=== PATIENT | female | born 1965 | race Caucasian/White ===

== ENCOUNTER 2016-09-30 05:58 | Day surgery (SDC) | payer BC ==
--- NOTE | ~2016-09-30 | EGD ---
EGD REPORT [facility] [address] [place] [address] NAME: YNES FLORES : [birth year] STATUS : REG [facility]#: [id number] AGE: 51 ADM/REG DATE : 09/30/16 MR#: [id number] REPORT SERV DATE: 09/30/16 DICTATED BY: MELISSA GRAYSON DATE: 09/30/16 REPORT STATUS : Draft [facility] DATE: 09/30/16 Endoscopy Center Patient Name: Ynes Flores Date of : 1965 Attending MD: MELISSA GRAYSON, Procedure Date No Time: 09/30/2016 Procedure: Upper GI endoscopy Indications: Epigastric abdominal pain, Iron deficiency anemia, Esophageal reflux Referring MD: MARY ANNE VIDAL Medicines: Monitored Anesthesia Care Complications: No immediate complications. Estimated blood loss: None. Procedure: Pre-Anesthesia Assessment: - ASA Grade Assessment: III - A patient with severe systemic disease. After obtaining informed consent, the endoscope was passed under direct vision. Throughout the procedure, the patient's blood pressure, pulse, and oxygen saturations were monitored continuously. The GIF [id number] was introduced through the mouth, and advanced to the second part of duodenum. The upper GI endoscopy was accomplished without difficulty. The patient tolerated the procedure well. Findings: One cratered esophageal ulcer with no bleeding and no stigmata of recent bleeding was found at the gastroesophageal junction. The lesion was 10 mm in largest dimension. LA Grade C (one or more mucosal breaks continuous between tops of 2 or more mucosal folds, less than 75% circumference) esophagitis with no bleeding was found in the lower third of the esophagus. Biopsies were taken with a cold forceps for histology. Verification of patient identification for the specimen was done. Estimated blood loss was minimal. A 4 cm hiatus hernia was present. The cardia and gastric fundus were normal on retroflexion. Patchy mild inflammation characterized by erythema was found in the entire examined stomach. Biopsies were taken with a cold forceps for histology. Verification of patient identification for the specimen was done. Estimated blood loss was minimal. The examined duodenum was normal. Multiple biopsies were obtained in the 2nd part of the duodenum with cold forceps for histology. Impression: - Non-bleeding esophageal ulcer. - LA Grade C reflux esophagitis. Biopsied. EGD REPORT [address] [address] NAME: YNES FLORES : [birth year] STATUS : REG [facility]#: [id number] AGE: 51 ADM/REG DATE : 09/30/16 MR#: [id number] REPORT SERV DATE: 09/30/16 DICTATED BY: MELISSA GRAYSON DATE: 09/30/16 REPORT STATUS : Draft TRANSCRIBED BY: [employer] DATE: 09/30/16 - Hiatus hernia. - Gastritis. Biopsied. - Normal examined duodenum. - Multiple biopsies were obtained in the 2nd part of the duodenum. Recommendation: - Patient has a contact number available for emergencies. The signs and symptoms of potential delayed complications were discussed with the patient. Return to normal activities tomorrow. Written discharge instructions were provided to the patient. - Return to previous diet. - Continue present medications. - Await pathology results. - Repeat the upper endoscopy in 3 months for surveillance. - Use Nexium (esomeprazole) 40 mg PO daily. Procedure Code(s): --- Professional --- 38162, Esophagogastroduodenoscopy, flexible, transoral; with biopsy, single or multiple Diagnosis Code(s): --- Professional --- K22.10, Ulcer of esophagus without bleeding K21.0, Gastro-esophageal reflux disease with esophagitis K44.9, Diaphragmatic hernia without obstruction or gangrene K29.70, Gastritis, unspecified, without bleeding R10.13, Epigastric pain D50.9, Iron deficiency anemia, unspecified CPT copyright 2013 [employer]. All rights reserved. The codes documented in this report are preliminary and upon front window cashier review may be revised to meet current compliance requirements. MELISSA GRAYSON, 09/30/2016 7:49 AM Number of Addenda: 0 Note Initiated On: 09/30/2016 7:24 AM Scope Withdrawal Time 0 hours 0 minutes 0 seconds [id number] [place] [address]
[~2016-09-30 05:58] MED LIST: ATEN25 PO; DIOV160 PO; DIOV80 PO; FERROUS SULF325 M1 PO; HYGROTON 25 MG25 MG PO; NEXIUM20 M1 PO; PAXIL40 MG PO; VITAMIN B-121000 MC1 SL; VITD PO; [UNRECOGNIZED DRUG - OTHER]; [UNRECOGNIZED DRUG - OTHER] PO
[2016-11-25] MEDS ORDERED: PRILOSEC40 MG PO (18:53)
== END 2016-09-30 23:59 | disposition home or self-care (01) ==
LOC: DMU 05:58
PROVIDERS: Internal Medicine Gastroenterology
PROC: 0DB98ZX Excision of Duodenum, Via Natural or Artificial Opening Endoscopic, Diagnostic (ICD-10-PCS; 2016-09-30)
PROC: 0DB68ZX Excision of Stomach, Via Natural or Artificial Opening Endoscopic, Diagnostic (ICD-10-PCS; 2016-09-30)
PROC: 0DB38ZX Excision of Lower Esophagus, Via Natural or Artificial Opening Endoscopic, Diagnostic (ICD-10-PCS; principal; 2016-09-30 08:00)
DX: I51.89 Other ill-defined heart diseases (principal); K21.0 Gastro-esophageal reflux disease with esophagitis; K22.10 Ulcer of esophagus without bleeding; K44.9 Diaphragmatic hernia without obstruction or gangrene; K29.70 Gastritis, unspecified, without bleeding; I10 Essential (primary) hypertension; G47.33 Obstructive sleep apnea (adult) (pediatric); E66.01 Morbid (severe) obesity due to excess calories; Z68.43 Body mass index [BMI] 50.0-59.9, adult; Z91.19 Patient's noncompliance with other medical treatment and regimen; Z88.5 Allergy status to narcotic agent; Z79.899 Other long term (current) drug therapy
CPT/HCPCS: 88305